=== PATIENT | male | born 1940 | race Caucasian/White ===

== ENCOUNTER → 2017-01-01 | Outpatient (CLI) | payer MEDICARE, OTHER ==
[2017-01-01 14:58] LABS: ABSOLUTE EOSINOPHILS # (AUTO) 0.2 10^3/uL (0.0-0.6); ABSOLUTE LYMPHOCYTES (AUTO) 1.7 10^3/uL (0.5-4.7); ABSOLUTE MONOCYTES (AUTO) 0.9 10^3/uL (0.1-1.4); ABSOLUTE NEUT (AUTO) 4.1 10^3/uL (1.7-8.2); BASOPHILS % (AUTO) 0.7 % (0-2); EOSINOPHILS % (AUTO) 3.5 % (0-6); HEMATOCRIT 40.7 % (37.9-51.0); HEMOGLOBIN 13.5 g/dL (13.5-17.0); HGB HCT DIFFERENCE -0.2; LYMPHOCYTES % (AUTO) 24.7 % (13-45); MEAN CORPUSCULAR HGB CONC 33.1 g/dL (32.0-36.0); MEAN CORPUSCULAR VOLUME 88 fl (80-97); RED BLOOD COUNT 4.65 10^6/uL (4.35-5.55); RED CELL DISTRIBUTION WIDTH 16.9 % (11.5-14.0); SEGMENTED NEUTROPHILS % (AUTO) 58.1 % (42-78)
[2017-01-01 15:19] LABS: ALANINE AMINOTRANSFERASE 27 U/L (21-72); ALBUMIN 4.1 g/dL (3.5-5.0); ALKALINE PHOSPHATASE 44 U/L (38-126); AMYLASE 88 U/L (30-110); ANION GAP 10 (5-19); ASPARTATE AMINO TRANSFERASE 25 U/L (17-59); BILIRUBIN,TOTAL 0.5 mg/dL (0.2-1.3); BLOOD UREA NITROGEN 19 mg/dL (7-20); CALCIUM 9.3 mg/dL (8.4-10.2); CARBON DIOXIDE 25 mmol/L (22-30); CHLORIDE 104 mmol/L (98-107); CREATININE RESULT 0.96 mg/dL (0.52-1.25); GLUCOSE 86 mg/dL (75-110); LIPASE 182.5 U/L (23-300); POTASSIUM 4.4 mmol/L (3.6-5.0); SODIUM 139.4 mmol/L (137-145)
== END ==
LOC: OD 13:46
PROVIDERS: ATTEND Specialist
DX: R10.9 Unspecified abdominal pain (principal)
CPT/HCPCS: 36415; 80053; 82150; 83690; 85025

== ENCOUNTER 2017-02-21 08:26 | Day surgery (SDC) | payer MEDICARE, OTHER ==
[2017-02-21] MEDS ORDERED: LIDOCAINE 2% JELLY 30 ML TUBE ONE (09:22)
[2017-02-21] MEDS ORDERED: GLYCOPYRROLATE INJ 0.4 MG/2 ML VIAL ONE (09:22)
[2017-02-21] MEDS ORDERED: ONDANSETRON HCL INJ/PF 4 MG/2 ML SDV ONE (09:22)
[2017-02-21] MEDS ORDERED: NALOXONE HCL INJ/PF 0.4 MG/1 ML SDV ONE (09:23)
[2017-02-21] MEDS ORDERED: FENTANYL CITRATE INJ/PF 100 MCG/2 ML AMPUL ONE (09:23)
[2017-02-21] MEDS ORDERED: FLUMAZENIL INJ 0.5 MG/5 ML VIAL IV ONE (09:23)
[2017-02-21] MEDS ORDERED: EPINEPHRINE INJ 1 MG/10 ML DISP.SYRIN ONE (09:23)
[2017-02-21] MEDS ORDERED: GLUCAGON,HUMAN RECOMB 1 MG INJ ONE (09:23)
[2017-02-21] MEDS: MIDAZOLAM 2 MG/2 ML INJ ONE ×2 (09:43→09:47)
[2017-02-21 11:27] VITALS: BP 128/76
--- NOTE | 2017-02-21 14:44 | HISTORY AND PHYSICAL E ---
History and Physical NAME: UNIQUE ASIF : 1940 AGE: 76Y ADMITTED: 02/21/2017 ROOM: CHIEF COMPLAINT: Colon screening. REVIEW OF SYSTEMS: The patient is known to have a mechanical heart valve. He is on Coumadin, he is off Coumadin at this time for colonoscopy. The patient has mechanical valve. The patient has enlarged prostate. The patient has hypertension. MEDICATIONS: 1. Atarax 10. 2. Crestor 5. 3. Diovan 80. 4. Flonase. 5. Folic acid. 6. Humira 10 mg subcutaneous. 7. Lovenox 100 mg subcutaneous every 12 hours. 8. Methotrexate 4 mg tablet. 9. Metoprolol. 10. Proscar. 11. Vitamin D. 12. Coumadin 5 mg. PHYSICAL EXAMINATION: GENERAL: Pleasant, alert and oriented. VITAL SIGNS: Blood pressure 120/70, pulse 70, respirations 18, temp is 98. HEAD, EYES, EARS, NOSE AND THROAT: Normal. NECK: Neck is supple. LUNGS: Lungs are clear. ABDOMEN: Soft. NEUROLOGICAL: Exam negative. CONCLUSIONS: Patient admitted for colon screening. PLAN: Colonoscopy. DICTATING PHYSICIAN: VICKIE LIVINGSTON M.D. [id number] PHY#: [id number] ID: [id number] JOB#: [id number] ACCT: [id number] cc:VICKIE LIVINGSTON M.D. >
--- NOTE | 2017-02-21 14:45 | OPERATIVE REPORT E ---
Operative Report NAME: UNIQUE ASIF : 1940 AGE: 76Y DATE OF SURGERY: ROOM: PREOPERATIVE DIAGNOSIS: Colon screening. POSTOPERATIVE DIAGNOSES: 1. External hemorrhoids. 2. Small diminutive polyp, 2 mm, hyperplastic, benign polyp. No biopsy obtained. OPERATION: Colonoscopy. SURGEON: VICKIE LIVINGSTON M.D. ANESTHESIA: Versed/fentanyl combination. TISSUE REMOVED OR ALTERED: None. PROCEDURE: Patient has artificial valve, he was off Coumadin, and his spray painting machine operator bridged him with Lovenox. Today he has no sign of bleeding. COLONOSCOPY: Rectal exam: External hemorrhoids, mild; diminutive polyp hyperplastic, 2 to 3 mm in size, small to biopsy. Sigmoid, descending colon, normal. Transverse colon, normal. Ascending colon, a moderate amount of full liquid stool. Cecum visualized, no evidence of polyps, no bleeding. Brown stool in the right colon. Inadequate prep. Scope withdrawn; cecum, ascending, transverse, descending, sigmoid, all the way to the rectum. CONCLUSION: 1. External hemorrhoids. 2. Mild diminutive polyp in the rectum, small to biopsy, benign hyperplastic. RECOMMENDATION: Followup colonoscopy after 3 years. DICTATING PHYSICIAN: VICKIE LIVINGSTON M.D. [id number] PHY#: [id number] ID: [id number] JOB#: [id number] ACCT: [id number] cc:VICKIE LIVINGSTON M.D. >
--- NOTE | 2017-02-22 12:42 | DISCHARGE SUMMARY E ---
Discharge Summary NAME: UNIQUE ASIF : 1940 AGE: 76Y ADMITTED: 02/21/2017 DISCHARGED: 02/21/2017 HISTORY: The patient is a 76-year-old male who presented for colon screening. The patient does have a history of mechanical valve, he is on Coumadin. The patient stopped his Coumadin 5 days prior to colonoscopy and he was bridged with Lovenox. HOSPITAL COURSE: Today's colonoscopy was benign. No evidence of cancer. There is small 2 to 3 mm sized polyp in the rectum, benign looking and most likely hypoplastic, too small to biopsy and the patient is on Lovenox and off Coumadin. DISCHARGE PLAN: Continue bridging with Lovenox. Start Coumadin today. Continue all medications; Atarax; Crestor; Diovan; Flonase; Lovenox; methotrexate; metoprolol; Proscar and Coumadin. FINAL DIAGNOSES: 1. Status post colonoscopy. 2. A 2 mm rectal polyp. 3. External hemorrhoids. No bleeding. Avoid heavy exertion. Avoid driving today. Continue all medications to include Lovenox and Coumadin and Proscar. DICTATING PHYSICIAN: VICKIE LIVINGSTON M.D. [id number] PHY#: [id number] ID: [id number] JOB#: [id number] ACCT: [id number] cc:VICKIE LIVINGSTON M.D. >
== END 2017-02-21 11:00 | disposition home or self-care (01) ==
LOC: END 08:26
PROVIDERS: ATTEND Specialist
PROC: 0DJD8ZZ Inspection of Lower Intestinal Tract, Via Natural or Artificial Opening Endoscopic (ICD-10-PCS; principal; 2017-02-21 09:00)
DX: Z12.11 Encounter for screening for malignant neoplasm of colon (principal); K44.9 Diaphragmatic hernia without obstruction or gangrene; K62.1 Rectal polyp; Z79.899 Other long term (current) drug therapy; Z79.01 Long term (current) use of anticoagulants
CPT/HCPCS: G0121; J2250; J3010; J1610; 45378; J0171; J2310; J2405; J3490

== ENCOUNTER → 2017-06-07 | Outpatient (CLI) | payer MEDICARE, OTHER ==
--- NOTE | 2017-06-07 15:04 | RADIOLOGY REPORT (SQ) ---
EXAM DESCRIPTION: VENOUS UNILATERAL LOWER COMPLETED DATE/TIME: 06/07/2017 2:56 pm REASON FOR STUDY: RLE PAIN M79.661 PAIN IN RIGHT LOWER LEG COMPARISON: None. TECHNIQUE: Dynamic and static castañeda scale and color images acquired of the right leg venous system. S elected spectral images acquired with additional compression and augmentation maneuvers. The contrala teral common femoral vein and saphenofemoral junction were also imaged. Images stored on PACS. LIMITATIONS: None. FINDINGS: RIGHT COMMON FEMORAL: Normal phasicity, compression and augmentation. No visualized echogenic material on g ray scale. No defects on color images. FEMORAL: Normal compression and augmentation. No visualized echogenic material on castañeda scale. No defe cts on color images. POPLITEAL: Normal compression, augmentation. No visualized echogenic material on castañeda scale. No defec ts on color images. CALF VESSELS: Normal compression, augmentation. No visualized echogenic material on castañeda scale. No de fects on color images. GSV and SSV: Normal compression, augmentation. No visualized echogenic material on castañeda scale. No def ects on color images. ANY DEEP VENOUS INSUFFICIENCY: Not evaluated. ANY EVIDENCE OF POPLITEAL CYST: No. OTHER: No other significant finding. LEFT COMMON FEMORAL VEIN AND SAPHENOFEMORAL JUNCTION: Normal phasicity, compression and augmentation. No visualized echogenic material on castañeda scale. No de fects on color images. IMPRESSION: NO EVIDENCE OF DVT OR SVT IN THE RIGHT LEG. TECHNICAL DOCUMENTATION: JOB ID: [id number] [employer]- All Rights Reserved
== END ==
LOC: SP 13:59
PROVIDERS: ATTEND Physician Assistant
DX: M79.661 Pain in right lower leg (principal); R60.9 Edema, unspecified
CPT/HCPCS: 93971

== ENCOUNTER → 2017-06-18 | Outpatient (CLI) | payer MEDICARE, OTHER | LOC: OD 12:00 | PROVIDERS: ATTEND Orthopaedic Surgery Sports Medicine | DX: M17.11 Unilateral primary osteoarthritis, right knee (principal); R60.9 Edema, unspecified; Z96.651 Presence of right artificial knee joint | CPT/HCPCS: 36415; 85652; 86140 ==

== ENCOUNTER → 2017-10-09 | Outpatient (CLI) | payer MEDICARE, OTHER ==
[2017-10-09 16:11] LABS: ABSOLUTE EOSINOPHILS # (AUTO) 0.2 10^3/uL (0.0-0.6); ABSOLUTE LYMPHOCYTES (AUTO) 1.8 10^3/uL (0.5-4.7); ABSOLUTE MONOCYTES (AUTO) 0.6 10^3/uL (0.1-1.4); ABSOLUTE NEUT (AUTO) 5.8 10^3/uL (1.7-8.2); BASOPHILS % (AUTO) 0.5 % (0-2); EOSINOPHILS % (AUTO) 1.8 % (0-6); HEMATOCRIT 38.4 % (37.9-51.0); HEMOGLOBIN 12.9 g/dL (13.5-17.0); HGB HCT DIFFERENCE 0.3; LYMPHOCYTES % (AUTO) 21.8 % (13-45); MEAN CORPUSCULAR HEMOGLOBIN 27.7 pg (27.0-33.4); MEAN CORPUSCULAR HGB CONC 33.6 g/dL (32.0-36.0); MEAN CORPUSCULAR VOLUME 82 fl (80-97); MONOCYTES % (AUTO) 7.5 % (3-13); RED BLOOD COUNT 4.65 10^6/uL (4.35-5.55); RED CELL DISTRIBUTION WIDTH 15.5 % (11.5-14.0); SEGMENTED NEUTROPHILS % (AUTO) 68.4 % (42-78); WHITE BLOOD COUNT 8.5 10^3/uL (4.0-10.5)
== END ==
LOC: OD 14:21
PROVIDERS: ATTEND Specialist
DX: D50.9 Iron deficiency anemia, unspecified (principal); R19.7 Diarrhea, unspecified; R10.9 Unspecified abdominal pain
CPT/HCPCS: 36415; 85025; 86140; 87493

== ENCOUNTER → 2018-09-24 | Outpatient (CLI) | payer MEDICARE, OTHER ==
--- NOTE | 2018-09-24 08:09 | RADIOLOGY REPORT (SQ) ---
EXAM DESCRIPTION: MRI LUMBAR SPINE WITHOUT COMPLETED DATE/TIME: 09/24/2018 7:55 am REASON FOR STUDY: LUMBAR RADICULOPATHY (M54.16) M54.16 RADICULOPATHY, LUMBAR REGION COMPARISON: None. TECHNIQUE: Sagittal and Axial imaging includes T1, T2, STIR and gradient echo sequences. Coronal T2/ HASTE imaging. LIMITATIONS: None. FINDINGS: VISUALIZED UPPER ABDOMEN: Limited evaluation. No acute or suspicious findings suggested. SEGMENTATION: No transitional anatomy. The lowest well-developed disc space is labeled L5-S1. ALIGNMENT: Anatomic. VERTEBRAE: Intact. BONE MARROW: Fatty reactive vertebral body endplate changes at L5-S1 DISC SIGNAL: Disc space loss of height at L5-S1 POSTERIOR ELEMENTS: Generally intact. No pars defect evident. HARDWARE: None in the spine. CORD AND CONUS: Normal in size and signal intensity. Conus at the L2 level. SOFT TISSUES: No aortic aneurysm seen. No bulky retroperitoneal adenopathy or mass. No paraspinal mas s or fluid. T11-12: AP and upper edge of the field of view. Bilateral facet arthropathy is present no gross caro tral or foraminal encroachment T12-L1: Unremarkable L1-L2: Unremarkable L2-L3: Unremarkable L3-L4: Minimal posterior disc bulging is present with mild bilateral facet and ligament hypertrophy c ausing borderline central canal stenosis. No significant foraminal narrowing. L4-L5: Broad diffuse posterior disc bulging and moderate bilateral facet and ligament hypertrophy cau se mild to moderate central canal stenosis, best shown on axial T2 series 6, image 26/37, and sagitta l image 8/14. Elsewhere at L4-5, there is mild bilateral inferior foraminal narrowing without exitin g L4 nerve root impingement. L5-S1: Disc space loss of height with broad diffuse posterior disc bulge and bony spurring and mild f acet hypertrophy. No central stenosis. Mild bilateral inferior foraminal narrowing without exiting L5 nerve root impingement SACRUM: Visualized upper sacrum intact. OTHER: No other significant findings. IMPRESSION: [id number] central canal narrowing at L4-5 TECHNICAL DOCUMENTATION: JOB ID: [id number] [employer]- All Rights Reserved Reading location - IP/workstation name: [email or web address]
== END ==
LOC: RAD 06:57
PROVIDERS: ATTEND Physician Assistant
DX: M54.16 Radiculopathy, lumbar region (principal)
CPT/HCPCS: 72148

== ENCOUNTER → 2020-03-23 | Outpatient (CLI) | payer MEDICARE, OTHER ==
[~2020-03-23] MED LIST: REGADENOSON INJ 0.4 MG/5 ML DISP.SYRIN IV ONE
--- NOTE | 2020-03-23 12:06 | DRAGON STRESS TEST REPORT ---
Name: Yeyo Ruiz : May Date: MARCH 23. The patient underwent a stress/rest, single isotope SPECT Imaging with pharmaological stress and gated SPECT imaging on MARCH 23 for evaluation of CAD. The patient underwent infusion of regadnoson 0.4mg IV using the standard protocol. The heart rate was 63 beats per minute at baseline and increased to 90 beats during the infusion of regadenoson. The resting blood pressure was 136/59 mm/Hg and increased to 156/65 mmHg, which is a normal response. The patient complained of headache and shortness of breathduring the procedure. The resting electrocardiogram demonstrated KRYSTIAN with NSSTTW changes. Stress electrocardiogram demonstrated NSR with NSSTTW changes. Myocardial perfusion imaging was performed at rest following the injection of 14.44 mCi of sestamibi. At peak pharmacolgic effect, the patient was injected with 42.8 mCi of sestamibi. Gating post-stress tomographic imaging was performed 60 minutes after stress. Findings The overall quality of the study is excellent. Raw images demonstrate no significant artifacts. Left ventricular cavity is noted to be normal on the rest and stress studies. Resting SPECT images demonstrate a large sized, of mild intensity perfusion defect in the inferior and inferolateral segments. The stress images reveal a large sized, of moderate intensity perfusion defect in the inferior and inferloateral segments. Gated SPECT imaging reveals decreased myocardial thickening and moderate hypokinesis of the inferior wall. The left ventricular ejection fraction was calculated to be 59%. Impression -Myocardial perfusion imaging is abnormal. 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 -Overall left ventricular systolic function was normal with moderate hypokinesis of the inferior wall. -There are no prior studies for comparison. MTDD
== END ==
LOC: RAD 06:45
PROVIDERS: ATTEND Internal Medicine Cardiovascular Disease
DX: I25.10 Atherosclerotic heart disease of native coronary artery without angina pectoris (principal); R94.39 Abnormal result of other cardiovascular function study
CPT/HCPCS: 93017; 78452; A9500; J2785; Q9969

== ENCOUNTER 2020-09-28 10:24 | Emergency (ER) | payer MEDICARE, OTHER ==
[2020-09-28 11:43] LABS: ABSOLUTE LYMPHOCYTES (AUTO) 0.7 10^3/uL (0.5-4.7); ABSOLUTE MONOCYTES (AUTO) 0.9 10^3/uL (0.1-1.4); ABSOLUTE NEUT (AUTO) 4.6 10^3/uL (1.7-8.2); BASOPHILS % (AUTO) 0.2 % (0-2); EOSINOPHILS % (AUTO) 0.3 % (0-6); HEMATOCRIT 36.1 % (37.9-51.0); HEMOGLOBIN 12.2 g/dL (13.5-17.0); LYMPHOCYTES % (AUTO) 10.9 % (13-45); MEAN CORPUSCULAR HEMOGLOBIN 29.3 pg (27.0-33.4); MEAN CORPUSCULAR HGB CONC 33.8 g/dL (32.0-36.0); MEAN CORPUSCULAR VOLUME 87 fl (80-97); MONOCYTES % (AUTO) 15.1 % (3-13); PLATELET COUNT 296 10^3/uL (150-450); RED BLOOD COUNT 4.16 10^6/uL (4.35-5.55); RED CELL DISTRIBUTION WIDTH 13.9 % (11.5-14.0); SEGMENTED NEUTROPHILS % (AUTO) 73.5 % (42-78); TOTAL CELLS COUNTED % (AUTO) 100 %; WHITE BLOOD COUNT 6.3 10^3/uL (4.0-10.5)
[2020-09-28 11:48] LABS: APPEARANCE,URINE SLIGHTLY-CLOUDY; BILIRUBIN,URINE NEGATIVE (NEGATIVE); COLOR,URINE AMBER; GLUCOSE, URINE NEGATIVE (NEGATIVE); KETONES,URINE 20 mg/dL (NEGATIVE); LEUKOCYTE ESTERASE,URINE NEGATIVE (NEGATIVE); NITRITE,URINE NEGATIVE (NEGATIVE); PROTEIN,URINE 30 mg/dL (NEGATIVE)
[2020-09-28 12:06] LABS: ALBUMIN 3.7 g/dL (3.5-5.0); ALKALINE PHOSPHATASE 43 U/L (38-126); ANION GAP 12 (5-19); ASPARTATE AMINO TRANSFERASE 53 U/L (17-59); BILIRUBIN,DIRECT 0.3 mg/dL (0.0-0.4); BILIRUBIN,TOTAL 0.8 mg/dL (0.2-1.3); BLOOD UREA NITROGEN 15 mg/dL (7-20); CALCIUM 8.7 mg/dL (8.4-10.2); CARBON DIOXIDE 27 mmol/L (22-30); CHLORIDE 100 mmol/L (98-107); GLUCOSE 95 mg/dL (75-110); POTASSIUM 4.4 mmol/L (3.6-5.0); TOTAL PROTEIN 6.5 g/dL (6.3-8.2)
--- NOTE | 2020-09-28 12:25 | ER Document Report ---
ED General - General Chief Complaint: Abdominal Pain Stated Complaint: ABDOMINAL PAIN, DIARRHEA Time Seen by Provider: 09/28/20 12:24 Primary Care Provider: MARQUITA GILLIS MD [ACTIVE STAFF] - Follow up in 3-5 days (for GI follow up) CORY HOBBS MD [Primary Care Provider] - Follow up as needed TRAVEL OUTSIDE OF THE [place] IN LAST 30 DAYS: No - HPI Notes: 80-year-old male with past medical history for hemorrhoids, reoccurring abdominal pain and diarrhea to the emergency department with complaints of worsening abdominal pain, bloating, diarrhea for the past 6 months. He states that 1 year [address] he [address] Dr. Gillis and had a colonoscopy and endoscopic done. He was initially placed on simethicone and had improvement of his diarrheal and abdominal symptoms. He states that about 6 months ago his medicine stopped working. He states that daily he has bloating and abdominal pain comes and goes. He states that he will have significant diarrhea and then have stools where it is very hard and he feels constipated. Denies any rectal bleeding. He states he did go to the ER at [facility] about a week and a half ago and had a CT that was "negative". He did not have oral contrast with the CD. He states that he feels like his abdomen is little bit more distended now. He denies any fevers, chills. Of note the patient tested positive for coronavirus on September 14. He admits to having a cough but does not feel particularly short of breath. He denies any leg swelling, chest pain, nausea, vomiting. He does admit that he feels like the diarrhea has gotten worse in the past several weeks more so than in the past several months. He has not attempted to call his GI sp ecialist. - Related Data Allergies/Adverse Reactions: No Known Allergies Allergy (Verified 09/28/20 10:58) Past Medical History - General Information source: Patient - Social History Smoking Status: Former Smoker Frequency of alcohol use: None Drug Abuse: None Family History: Reviewed & Not Pertinent Patient has homicidal ideation: No - Past Medical History Cardiac Medical History: Reports: Hx Hypercholesterolemia, Hx Hypertension Denies: Hx Coronary Artery Disease, Hx Heart Attack Pulmonary Medical History: Reports: Hx Pneumonia - yrs ago Denies: Hx Asthma, Hx Bronchitis, Hx COPD Neurological Medical History: Denies: Hx Cerebrovascular Accident, Hx Seizures Musculoskeletal Medical History: Reports Hx Arthritis - Rheumatoid Past Surgical History: Reports: Hx Cardiac Surgery - mechanical aortic valve, Hx Cholecystectomy, Hx Orthopedic Surgery - right knee/left knee/right hip replacements, Hx Tonsillectomy, Hx Valve Replacement. Denies: Hx Pacemaker - Immunizations Hx Diphtheria, Pertussis, Tetanus Vaccination: - Unsure Hx Pneumococcal Vaccination: 08/04/15 Review of Systems - Review of Systems Constitutional: denies: Chills, Fever Cardiovascular: denies: Chest pain, Palpitations, Orthopnea, Dyspnea, Syncope, Dizziness, Lightheaded Gastrointestinal: Abdominal pain, Diarrhea, Nausea, Constipation. denies: Vomiting Genitourinary: No symptoms reported Musculoskeletal: No symptoms reported Skin: No symptoms reported Hematologic/Lymphatic: No symptoms reported Neurological/Psychological: No symptoms reported -: Yes All other systems reviewed and negative Physical Exam - Vital signs Vitals: Temp Pulse Resp BP Pulse Ox 98.9 F 68 20 159/69 H 97 09/28/20 10:37 09/28/20 10:37 09/28/20 10:37 09/28/20 10:37 09/28/20 10:37 Interpretation: Normal Notes: PHYSICAL EXAMINATION: GENERAL: Well-appearing, well-nourished and in no acute distress. HEAD: Atraumatic, normocephalic. EYES: Pupils equal round and reactive to light, extraocular movements intact, sclera anicteric, conjunctiva are normal. ENT: nares patent, oropharynx clear without exudates. Moist mucous membranes. TMs are clear bilaterally NECK: Normal range of motion, supple without lymphadenopathy LUNGS: Breath sounds clear to auscultation bilaterally and equal. No wheezes rales or rhonchi. Intermittent dry cough. No accessory muscle use. No respiratory distress. HEART: Regular rate and rhythm without murmurs ABDOMEN: Mildly obese, soft, nontender, normoactive bowel sounds. There is a small not incarcerated ventral hernia on the right side of the abdomen. No guarding, no rebound. No masses appreciated. No CVA tenderness EXTREMITIES: Normal range of motion, no pitting or edema. No cyanosis. NEUROLOGICAL: No focal neurological deficits. Moves all extremities spontaneously and on command. PSYCH: Normal mood, normal affect. SKIN: Warm, Dry, normal turgor, no rashes or lesions noted. Course - Re-evaluation Re-evalutation: 09/28/20 Impression: Abdominal pain that is generalized, abdominal bloating, diarrhea, COVID-[address] today with oral contrast. It did not show an acute abdominal process. It did show bilateral groundglass opacities in both lungs which is most consistent with COVID-19. Patient states he has been coughing but he does not really feel short of breath. He does not have significant tachypnea or hypoxia here today in the emergency department. Given a dose of Decadron. Will send home with albuterol. We will have him follow-up with his GI specialist. Encouraged to return if any worsening symptoms. Trudi gutierrez agrees with the plan. - Vital Signs Vital signs: Temp Pulse Resp BP Pulse Ox 98.9 F 68 20 159/69 H 97 09/28/20 10:59 09/28/20 10:37 09/28/20 10:37 09/28/20 10:37 09/28/20 10:37 - Laboratory Result Diagrams: 09/28/20 11:15 09/28/20 11:15 Laboratory results interpreted by me: 09/28/20 09/28/20 11:15 11:15 RBC 4.16 L Hgb 12.2 L Hct 36.1 L Lymph % (Auto) 10.9 L Clarke % (Auto) 15.1 H Urine Protein 30 H Urine Ketones 20 H Urine Urobilinogen 2.0 H - Diagnostic Test Radiology reviewed: Image reviewed, Reports reviewed Discharge - Discharge Clinical Impression: Pneumonia due to COVID-19 virus, Abdominal bloating Abdominal pain Qualifiers: Abdominal location: generalized Qualified Code(s): R10.84 - Generalized abdominal pain Diarrhea Qualifiers: Diarrhea type: unspecified type Qualified Code(s): R19.7 - Diarrhea, unspecified Condition: Stable Disposition: HOME, SELF-CARE Instructions: Abdominal Pain ([facility]), Viral Syndrome ([facility]) Additional Instructions: Today on your CT scan that was noted to be multiple areas of opacities that reflect a multifocal pneumonia. This is seen in COVID-19. On the abdominal portion of your CT there is no evidence for an infection, obstruction, abscess, or any other acute findings. The increase in your diarrhea symptoms could be related to COVID-19 but since they have been ongoing for over 6 months, please follow-up with Dr. Gillis, your GI specialist, for further evaluation. Your lab work has been reassuring. Your vital signs are also reassuring. Please return immediately if you have chest pain, shortness of breath, or any other concerns. Prescriptions: Albuterol Sulfate [Proair HFA Inhalation Aerosol 8.5 gm MDI] 2 puff IH Q4H PRN #1 [id number] PRN Reason: Referrals: CORY HOBBS MD [Primary Care Provider] - Follow up as needed MARQUITA GILLIS MD [ACTIVE STAFF] - Follow up in 3-5 days (for GI follow up)
[2020-09-28] MEDS ORDERED: ONDANSETRON HCL INJ/PF 4 MG/2 ML SDV IV ONE ×2 (13:17→15:00)
[2020-09-28] MEDS ORDERED: NORMAL SALINE 500 ML IV ONE (13:17)
[2020-09-28] MEDS ORDERED: MORPHINE SULFATE 10 MG/ML INJ IV ONE (14:41)
[2020-09-28] MEDS ORDERED: KETOROLAC TROMETHAMINE INJ/PF 30 MG/1 ML SDV IV ONE (15:00)
--- NOTE | 2020-09-28 16:31 | RADIOLOGY REPORT (SQ) ---
EXAM DESCRIPTION: CT ABD/PELVIS WITH IV ORAL IMAGES COMPLETED DATE/TIME: 09/28/2020 4:14 pm REASON FOR STUDY: abd pain COMPARISON: 03/17/2015 TECHNIQUE: CT scan of the abdomen and pelvis performed using helical scanning technique with dynamic intravenous contrast injection. Patient was given oral contrast. Images reviewed with lung, soft ti ssue, and bone windows. Reconstructed coronal and sagittal MPR images reviewed. Delayed images for ev aluation of the urinary system also acquired. All images stored on PACS. All CT scanners at this facility use dose modulation, iterative reconstruction, and/or weight based d osing when appropriate to reduce radiation dose to as low as reasonably achievable (ALARA). [facility]: Dose Right [facility]: CareDose [facility]: Dose Right [facility]: Teradose 4D [facility]: Ecast CONTRAST TYPE AND DOSE: contrast/concentration: Isovue 350.00 mmol/ml; Total Contrast Delivered: 100 .0 ml; Total Saline Delivered: 38.9 ml RENAL FUNCTION: Creatinine 1.04 RADIATION DOSE: CT Rad equipment meets quality standard of care and radiation dose reduction techniq ues were employed. CTDIvol: 14.8 - 18.6 mGy. DLP: 1782 mGy-cm.. LIMITATIONS: None. FINDINGS: LOWER CHEST: Patchy multifocal ground-glass opacities throughout both lungs greatest withi n the left lower lobe. More focal nodular opacity within the right lower lobe measuring 7 mm (series 4, image 5). LIVER: Normal size. No masses. No dilated ducts. Likely mild focal fat around the gallbladder fossa . SPLEEN: Normal size. No focal lesions. PANCREAS: No masses. No significant calcifications. No adjacent inflammation or peripancreatic fluid collections. Pancreatic duct not dilated. GALLBLADDER: Surgically absent. ADRENAL GLANDS: Mild asymmetric thickening of the medial limb of the left adrenal gland measuring 12 mm, likely small adenoma although incompletely characterized. Unremarkable right adrenal gland. RIGHT KIDNEY AND URETER: No solid masses. No significant calcifications. No hydronephrosis or hyd roureter. LEFT KIDNEY AND URETER: No solid masses. No significant calcifications. No hydronephrosis or hydr oureter. AORTA AND VESSELS: Aortoiliac atherosclerosis without aneurysm. No dissection. Renal arteries, SMA, c eliac without stenosis. RETROPERITONEUM: No retroperitoneal adenopathy, hemorrhage or masses. BOWEL AND PERITONEAL CAVITY: No masses or inflammatory changes. No free fluid or peritoneal masses. APPENDIX: Normal. PELVIS: Decompressed urinary bladder. No pelvic free fluid, adenopathy or mass. Calcification withi n the central prostate. ABDOMINAL WALL: Likely small fat containing right inguinal hernia. No subcutaneous masses. BONES: No acute bony abnormality. No suspicious osseous lesions. Lower lumbar spondylosis with sign ificant disc height loss at L5-S1. Partially visualized right hip arthroplasty. OTHER: No other significant finding. IMPRESSION: 1. Patchy multifocal bibasilar ground-glass opacities likely infectious/inflammatory. Imaging features are compatible with Covid-19 pneumonia although nonspecific. 2. 7 mm right lower lobe pulmonary nodule. Follow-up as below. 3. No evidence of acute intra-abdominal/pelvic process. 4. Prior cholecystectomy. Additional incidental findings as above. COMMENT: FLEISCHNER CRITERIA FOR FOLLOW-UP OF PULMONARY NODULES Incidentally detected new nodules in persons 35 or older. HIGH RISK: History of smoking or other known risk factors. 6-8 mm single solid nodule: LOW RISK: CT 6-12 mo; then consider CT 18-24 mo. HIGH RISK: CT 6-12 mo; t hen CT 18-24 mo. TECHNICAL DOCUMENTATION: JOB ID: [id number] Quality ID # [id number]: Final reports with documentation of one or more dose reduction techniques (e.g., Au tomated exposure control, adjustment of the mA and/or kV according to patient size, use of iterative reconstruction technique) 2010 [employer]- All Rights Reserved Reading location - IP/workstation name: [email or web address]
[2020-09-28] MEDS ORDERED: DEXAMETHASONE SOD PHOS INJ 10 MG/1 ML VIAL IV ONE (17:07)
[2020-09-28 17:49] VITALS: BP 148/74
== END 2020-09-28 17:49 | disposition home or self-care (01) ==
LOC: ER 10:24
DX: U07.1 COVID-19 (principal); J12.89 Other viral pneumonia; R10.84 Generalized abdominal pain; R14.0 Abdominal distension (gaseous); R19.7 Diarrhea, unspecified; K59.00 Constipation, unspecified; R05 Cough; R11.0 Nausea; Z87.891 Personal history of nicotine dependence; I10 Essential (primary) hypertension
CPT/HCPCS: 96376; 99285; 96361; 96374; 96375; 36415; 85025; 87070; 81001; 74177; J1885; J2405; J7040; J1100